=== PATIENT | female | born 1945 | race Caucasian/White ===

== ENCOUNTER 2023-10-30 18:18 | Emergency (ER) | payer MEDICARE, SELFPAY ==
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
[2023-10-30 18:18] VITALS: BP 145/77; PULSE 60; RESP 17; TEMP 36.6; O2SAT 98; BMI 29.9
--- NOTE | 2023-10-30 18:20 | CT_ITS ---
PROCEDURE INFORMATION: Exam: CT Cervical Spine Without Contrast Exam date and time: 10/30/2023 6:35 PM Age: 78 years old Clinical indication: Injury or trauma; Fall; Blunt trauma TECHNIQUE: Imaging protocol: Computed tomography of the cervical spine without contrast. Radiation optimization: All CT scans at this facility use at least one of these dose optimization techniques: automated exposure control; mA and/or kV adjustment per patient size (includes targeted exams where dose is matched to clinical indication); or iterative reconstruction. REPORTING DATA: Count of CT and Cardiac NM exams in prior 12 months: This patient has received 0 known CTs and 0 known cardiac nuclear medicine studies in the 12 months prior to the current study. COMPARISON: CT HEAD/BRAIN WO CON 10/30/2023 6:33 PM FINDINGS: Bones/joints: No acute fracture. Anterior subluxation of C3 on C4 noted, approximately 25%. Degenerative disc disease is noted at all levels. Severe disc space height loss noted at C4-C5, C5-C6 and C6-C7 with anterior and posterior osteophytes. Severe right-sided neural foraminal narrowing and moderate central canal stenosis noted at C3-C4. Bilateral icufvqyt-kw-utispl neural foraminal narrowing noted at C4-C5 through C6-C7 with wzxkfgwe-nb-tiycql central canal stenosis. Multilevel facet arthropathy. Lungs: Lung apices are normal. Thyroid: Incidentally noted is lack of visualization of the right thyroid lobe. Correlate clinically for prior resection. Soft tissues: Unremarkable. IMPRESSION: 1. No acute fracture. 2. Anterior subluxation of C3 on C4, approximately 25% 3. Multilevel degenerative disc disease with central canal stenosis or neural foraminal narrowing, noted above
--- NOTE | 2023-10-30 18:20 | CT_ITS ---
PROCEDURE INFORMATION: Exam: CT Head Without Contrast Exam date and time: 10/30/2023 6:33 PM Age: 78 years old Clinical indication: Injury or trauma; Fall; Blunt trauma (contusions or hematomas) TECHNIQUE: Imaging protocol: Computed tomography of the head without contrast. Radiation optimization: All CT scans at this facility use at least one of these dose optimization techniques: automated exposure control; mA and/or kV adjustment per patient size (includes targeted exams where dose is matched to clinical indication); or iterative reconstruction. REPORTING DATA: Count of CT and Cardiac NM exams in prior 12 months: This patient has received 0 known CTs and 0 known cardiac nuclear medicine studies in the 12 months prior to the current study. COMPARISON: No relevant prior studies available. FINDINGS: Brain: There is no acute hemorrhage or obvious acute infarct. Old lacunar infarct noted left basal. Cortical volume loss noted. Scattered hypodensities noted in the bilateral periventricular and deep white matter. Atherosclerosis noted in the bilateral cavernous carotid arteries. Cerebral ventricles: No hydrocephalus. Paranasal sinuses: Visualized sinuses are unremarkable. No fluid levels. Mastoid air cells: Visualized mastoid air cells are well aerated. Bones/joints: Unremarkable. No acute fracture. Soft tissues: Unremarkable. IMPRESSION: 1. No acute intracranial disease or hemorrhage. 2. No obvious acute infarct. Please note if the patient's symptoms do not improve, or worsen, consider MRI with diffusion imaging. 3. Chronic deep white matter ischemic and senescent changes noted. Please see above. 4. 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
--- NOTE | 2023-10-30 18:31 | PC.NURSE ---
Pt gone to RAD via stretcher
--- NOTE | 2023-10-30 18:34 | PC.NURSE ---
pt to ct scan via stretcher
--- NOTE | 2023-10-30 18:40 | PC.NURSE ---
pt back from ct scan. Dr. VIEIRA at bedside now to suture L eyebrow laceration
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
--- NOTE | 2023-10-30 18:45 | PC.NURSE ---
Dr. Pressley at BS
[2023-10-30 19:01] VITALS: BP 132/55; PULSE 57; O2SAT 93
--- NOTE | 2023-10-30 19:51 | PC.NURSE ---
applied cervical collar with assistance from Kim Hendricks and Patrice Torres.
[2023-10-30 20:36] VITALS: BP 123/66; PULSE 68; RESP 16; TEMP 36.6; O2SAT 97
--- NOTE | 2023-10-30 20:37 | PC.NURSE ---
pt alert and oriented, pupils 3mm PERRLA, moving all extremities, assisted to wheel chair per family request and assisted out of ER
== END 2023-10-30 20:38 | disposition home or self-care (01) ==
PROVIDERS: Emergency Provider Emergency Medicine; PCP Family Medicine
DX: S01.112A Laceration without foreign body of left eyelid and periocular area, initial encounter (principal); S00.12XA Contusion of left eyelid and periocular area, initial encounter; V03.10XA Pedestrian on foot injured in collision with car, pick-up truck or van in traffic accident, initial encounter
CPT/HCPCS: 70450; 72125; 99285

== ENCOUNTER 2024-03-08 09:16 | Outpatient (CLI) | payer MEDICARE, SELFPAY | END 2024-03-08 23:59 | LOC: LAB.DROPOF 03-09 09:17 | PROVIDERS: PCP Nurse Practitioner; Visit Provider Nurse Practitioner | DX: L97.519 Non-pressure chronic ulcer of other part of right foot with unspecified severity (principal) | CPT/HCPCS: 87070; 87205 ==

== ENCOUNTER 2024-03-28 16:17 | Outpatient (CLI) | payer MEDICARE, SELFPAY ==
--- NOTE | 2024-03-28 16:23 | XR_ITS ---
PROCEDURE INFORMATION: Exam: XR Left Foot Complete; Alignment Exam date and time: 03/28/2024 4:24 PM Age: 79 years old Clinical indication: Pain; Foot; Left; Additional info: Foot pain TECHNIQUE: Imaging protocol: Radiologic exam of the left foot. Views: 3 or more views. COMPARISON: No relevant prior studies available. FINDINGS: Bones/joints: There is a hallux valgus deformity. There is a plantar calcaneal enthesophyte. There is mild degenerative change of the tarsus and interphalangeal joints. There is diffuse osseous demineralization. The osseous structures are intact, with no signs of acute fracture, dislocation, or malalignment. Age-related degenerative changes are observed. There is no evidence of abnormal bone density or destructive lesions. Soft tissues: The soft tissues appear within normal limits. IMPRESSION: At the time of imaging, the study shows no acute osseous abnormalities but does reveal signs of age-related degenerative changes.
--- NOTE | 2024-03-28 16:23 | XR_ITS ---
PROCEDURE INFORMATION: Exam: XR Right Foot Complete; Alignment Exam date and time: 03/28/2024 4:24 PM Age: 79 years old Clinical indication: Other: Foot ulcer TECHNIQUE: Imaging protocol: Radiologic exam of the right foot. Views: 3 or more views. COMPARISON: No relevant prior studies available. FINDINGS: Bones/joints: There is a hallux valgus deformity. There is diffuse osseous demineralization. There is a plantar calcaneal enthesophyte. There is a dorsal calcaneal enthesophyte. There is mild degenerative change of the tarsus and interphalangeal joints. No acute osseous injury. Soft tissues: There is some soft tissue swelling. No radiopaque foreign body is seen. IMPRESSION: No radiopaque foreign body or acute osseous abnormality.
== END 2024-03-28 23:59 | disposition home or self-care (01) ==
LOC: RAD 16:19
PROVIDERS: PCP Family Medicine; Visit Provider Nurse Practitioner
DX: L97.512 Non-pressure chronic ulcer of other part of right foot with fat layer exposed (principal); M79.671 Pain in right foot; M79.672 Pain in left foot
CPT/HCPCS: 73630

== ENCOUNTER 2024-04-15 09:57 | Outpatient (CLI) | payer MEDICARE, SELFPAY ==
--- NOTE | 2024-04-15 09:59 | US_ITS ---
FINAL REPORT CLINICAL HISTORY: Decreased Pedal Pulses,WOUND RIGHT 2ND/3RD TOE, DEFORMITY OF 2ND TOE ,HTN FINDINGS: COMPLETE ANKLE/BRACHIAL INDICES BILATERAL Ankle brachial indices were obtained. The right RICK is 1.2. The left RICK is 1.1. IMPRESSION: ABIs are within normal limits bilaterally. Reviewed, Interpreted and Dictated by Amando Perez III, MD Transcribed by Judi Hooks Authenticated and [facility]
== END 2024-04-15 23:59 | disposition home or self-care (01) ==
PROVIDERS: PCP Family Medicine; Visit Provider Podiatrist
DX: R09.89 Other specified symptoms and signs involving the circulatory and respiratory systems (principal)
CPT/HCPCS: 93923

== ENCOUNTER 2024-05-04 14:57 | Outpatient (CLI) | payer MEDICARE, SELFPAY ==
--- NOTE | 2024-05-04 14:58 | MR_ITS ---
FINAL REPORT CLINICAL HISTORY: non healing wound of R 2nd toe FINDINGS: Multi planar MR imaging of the right foot was obtained without contrast. Motion artifact is identified on many of the images. Severe hallux valgus deformity is identified. There are mild degenerative changes of the 1st metatarsophalangeal joint. There is abnormal T1 and T2 signal involving the distal aspect of the 2nd proximal phalanx. The appearance is consistent with osteomyelitis. There is 2nd digit hammertoe deformity. Forefoot soft tissue edema or cellulitis is identified. IMPRESSION: Osteomyelitis involving the distal aspect of the 2nd proximal phalanx. Reviewed, Interpreted and Dictated by Amando Perez III, MD Transcribed by Judi Hooks Authenticated and [facility]
== END 2024-05-04 23:59 | disposition home or self-care (01) ==
LOC: RAD 14:58
PROVIDERS: PCP Family Medicine; Visit Provider Nurse Practitioner
DX: E11.621 Type 2 diabetes mellitus with foot ulcer (principal); L97.512 Non-pressure chronic ulcer of other part of right foot with fat layer exposed
CPT/HCPCS: 73718

== ENCOUNTER 2024-05-06 16:13 | Outpatient (CLI) | payer MEDICARE, MEDICAID, SELFPAY ==
[2024-05-06 17:07] LABS: Alanine Aminotransferase 21 U/L (12-78); Albumin Level 3.7 g/dl (3.5-5.0); Albumin/Globulin Ratio 1.3 (1.1-1.8); Alkaline Phosphatase 135 U/L (38-126); Anion Gap 15.2 mEq/L (5-15); Aspartate Amino Transferase 29 U/L (14-36); Bilirubin,Total 0.4 mg/dl (0.2-1.3); Blood Urea Nitrogen 32 mg/dl (7-17); Calcium 9.2 mg/dl (8.4-10.2); Carbon Dioxide 26 mmol/L (22.0-30.0); Chloride 108 mmol/L (98-107); Estimated Glomerular Filt Rate 29 ml/min (>60); GFR (African American) 35 ML/MIN (>60); Globulin 2.9 g/dL (1.3-3.2); Glucose 124 mg/dl (74-100); Potassium 4.2 mmoL/L (3.5-5.1); Sodium 145 mmol/L (136-145); Total Protein,Serum 6.6 g/dl (6.3-8.2)
[2024-05-06 17:10] LABS: Basophils % 0.5 % (0.1-2.0); Eosinophils # 0.3 K/mm3 (0.0-0.4); Eosinophils % 3.6 % (0.1-12.0); Hematocrit 38.2 % (37.0-47.0); Hemoglobin 12.4 g/dL (12.2-16.2); Lymphocytes # 2.3 K/mm3 (0.7-4.5); Lymphocytes % 25.7 % (10-50); Mean Corpuscular HGB Conc 32.5 g/dL (31.8-35.4); Mean Corpuscular Hemoglobin 30.3 pg (27.0-31.2); Mean Corpuscular Volume 93.2 fl (81-99); Mean Platelet Volume 8.3 fl (7.4-10.4); Monocytes # 0.4 K/mm3 (0.1-1.0); Monocytes % 4.6 % (1.7-9.3); Neutrophils # 5.8 K/mm3 (1.8-7.8); Neutrophils % 65.6 % (37.0-80.0); Platelet Count 285 K/mm3 (142-424); Red Blood Count 4.09 M/mm3 (4.20-5.40); Red Cell Distribution Width 14.3 % (11.5-17.5); White Blood Count 8.8 K/mm3 (4.8-10.8)
[2024-05-06 17:14] LABS: C-Reactive Protein 1.8 mg/L (0-4)
[2024-05-06 17:35] LABS: Hemoglobin A1C 5.5 % (4.0-6.0)
[2024-05-06 20:11] LABS: Erythrocyte Sedimentation Rate 21 mm/hr (0-30)
== END 2024-05-06 23:59 | disposition home or self-care (01) ==
LOC: LAB 16:14
PROVIDERS: PCP Nurse Practitioner; Visit Provider Nurse Practitioner
DX: E11.621 Type 2 diabetes mellitus with foot ulcer (principal); L97.512 Non-pressure chronic ulcer of other part of right foot with fat layer exposed; L97.519 Non-pressure chronic ulcer of other part of right foot with unspecified severity
CPT/HCPCS: 36415; 80053; 83036; 85025; 85651; 86140

== ENCOUNTER 2024-05-30 11:32 | Observation (INO) | payer MEDICARE, MEDICAID, SELFPAY ==
[2024-05-30] VITALS (23 sets, daily range): BP systolic 109–158; BP diastolic 49–94; PULSE 61–80; RESP 16–20; TEMP 36.5–36.9; O2SAT 93–97; BMI 23.7; BMI 29.0; BMI 38.5
--- NOTE | 2024-05-30 10:18 | XR_ITS ---
FINAL REPORT TECHNIQUE: Single view chest CLINICAL HISTORY: surgery..cough FINDINGS: A single view of the chest was obtained. The heart is enlarged. There is a large hiatal hernia. The lungs are clear. There is no pneumothorax. Osseous structures demonstrate severe degenerative changes of the bilateral shoulders. IMPRESSION: No acute cardiopulmonary process. Reviewed, Interpreted and Dictated by Amando Perez III, MD Transcribed by Antonia Kelly Authenticated and . [facility]
--- NOTE | 2024-05-30 10:29 | ECG_ITS ---
APPROVED REPORT Exam: Resting ECG HR:57 bpm ECG Measurements Heart Rate 57 AXES UT 155 P 54 QRSd 155 QRS -8 QT 462 T 34 QTc 456 Conclusion SINUS BRADYCARDIA WITH OCCASIONAL SUPRAVENTRICULAR PREMATURE COMPLEXES LEFT BUNDLE BRANCH BLOCK [120+ ms QRS DURATION, 80+ ms Q/S IN V1/V2, 85+ ms R IN I/aVL/V5/V6] ABNORMAL ECG UNCONFIRMED REPORT Electronically signed by : LETICIA VILLEGAS, 05/31/2024 02:15:34
[2024-05-30 10:50] LABS: POC Glucose,Bedside 91 (70-110)
--- NOTE | 2024-05-30 11:56 | EXP.ANES.CKL ---
[facility] Disclaimer: The information contained in this section may have been updated after the patient was seen, as this information can be updated by other users. Medical History Gastro-esophageal reflux Degenerative joint disease involving multiple joints Chronic kidney disease, stage 3 Mixed anxiety depressive disorder Mild memory disturbance Idiopathic peripheral neuropathy Gout Hyperlipidemia Vitamin D deficiency Renal disorder Type 2 diabetes mellitus Surgical History H/O: hysterectomy History of thyroid surgery Hx of cholecystectomy Hx of cataract surgery Family History Sister Cancer Heart attack Hypertension Father Heart attack Mother Seizure disorder Social History (Updated 05/30/24 @ 10:10 by Yesy Guardado RN) Smoking Status: Former smoker years smoked: 15 smoking status stop date: 2000 alcohol intake: never substance use type: denies use current occupational status: retired Travel in the last 8 weeks: None household members: none marital status: number of children: 3 education level: high school pets and animals: Yes diet: diabetic caffeine: No [facility] Anesthesia Checklist Patient Identification Patient Identification: Arm Band Structural Data Admitted From: Home Planned Operative Procedure/s: Right 2nd Toe Amputation Consent for Planned Operative Procedure(s) Verified: Yes Verified Documents: Surgical Consent and History and Physical NPO Status Verified Time NPO: 00:00 Additional verifications Anesthesia Reactions: No Hx Blood Transfusions: No Blood Transfusion Reaction: No Airway Assessment Mallampati Score:: Class II C-Spine Mobility Assessed: Yes TMJ Mobility Assessed: Yes Dentition: Edentulous Neurological Assessment Level of Consciousness: Awake, Alert and Appropriate Anesthesia Plan Anesthesia Risk discussed: Yes Anesthesia Plan: Verified ASA Class: III Anesthesia Type: MAC
--- NOTE | 2024-05-30 11:57 | P.CONS_ITS ---
History of Present Illness *Admission Date: 05/30/24 *Reason for visit:: S/p R 2nd toe amp *History of present illness: Patient is a 79-year-old diabetic female who presents for postop admission for 23-hour observation after right second toe amputation. Patient was recently seen at [facility] for A-fib. 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 Medical and cardiac clearance has been granted prior to surgery today. Patient has known second toe osteomyelitis second to rigid hammertoe contracture and open wound, confirmed with x-rays, MRI and wound culture. Due to her chronic kidney disease, recommendation is no PICC line. Her previous wound cultures were susceptible to linezolid. We will plan for IV antibiotic while admitted then discharged with oral linezolid. [facility] Disclaimer: The information contained in this section may have been updated after the patient was seen, as this information can be updated by other users. Medical History Gastro-esophageal reflux Degenerative joint disease involving multiple joints Chronic kidney disease, stage 3 Mixed anxiety depressive disorder Mild memory disturbance Idiopathic peripheral neuropathy Gout Hyperlipidemia Vitamin D deficiency Renal disorder Type 2 diabetes mellitus Surgical History H/O: hysterectomy History of thyroid surgery Hx of cholecystectomy Hx of cataract surgery Family History Heart attack Sister Father Seizure disorder Mother Cancer Sister Hypertension Sister Social History Smoking Status: Former smoker years smoked: 15 smoking status stop date: 2000 alcohol intake: never substance use type: denies use current occupational status: retired Travel in the last 8 weeks: None household members: none marital status: number of children: 3 education level: high school pets and animals: Yes diet: diabetic caffeine: No Review of Systems Review of Systems Review of systems:: pertinent systems reviewed and negative unless documented below Constitutional Constitutional: Reports system reviewed and no additional complaints, except as documented and Reports weakness Eyes Eyes: Reports system reviewed and no additional complaints, except as documented ENT Ears, Nose, Mouth, and Throat: Reports system reviewed and no additional complaints, except as documented *Cardiovascular Cardiovascular: Reports system reviewed and no additional complaints, except as documented, Reports as per HPI and Reports pedal edema *Respiratory Respiratory: Reports system reviewed and no additional complaints, except as documented *Gastrointestinal Gastrointestinal: Reports system reviewed and no additional complaints, except as documented *Genitourinary Genitourinary: Reports system reviewed and no additional complaints, except as documented *Musculoskeletal Musculoskeletal: Reports system reviewed and no additional complaints, except as documented, Reports arthralgias, Reports muscle weakness and Reports numbness Integumentary/Breasts Skin/Breast: Reports system reviewed and no additional complaints, except as documented and Reports skin ulcer *Neurologic Neurologic: Reports system reviewed and no additional complaints, except as documented, Reports numbness and Reports weakness Psychiatric Psychiatric: Reports system reviewed and no additional complaints, except as documented Endocrine Endocrine: Reports system reviewed and no additional complaints, except as documented Hematologic/Lymphatic Hematologic/Lymphatic: Reports system reviewed and no additional complaints, except as documented Allergic/Immunologic Allergic/Immunologic: Reports system reviewed and no additional complaints, except as documented Meds Home Medications and Allergies Home Medications Medication Instructions Recorded Confirmed Type allopurinol 100 mg tablet 100 mg PO DAILY 03/08/24 05/30/24 History amlodipine 5 mg tablet (Norvasc) 5 mg PO DAILY 03/08/24 05/30/24 History aripiprazole 10 mg tablet (Abilify) 10 mg PO HS 03/08/24 05/30/24 History buspirone 15 mg tablet 15 mg PO BID 03/08/24 05/30/24 History ergocalciferol (vitamin D2) 1,250 1,250 mcg PO MONTHLY 03/08/24 05/30/24 History mcg (50,000 unit) capsule (Vitamin D2) famotidine 20 mg tablet (Pepcid) 20 mg PO BID 03/08/24 05/30/24 History folic acid 1 mg tablet 1 mg PO DAILY 03/08/24 05/30/24 History furosemide 40 mg tablet (Lasix) 40 mg PO DAILYP PRN Edema 03/08/24 05/30/24 His tory levothyroxine 50 mcg tablet 50 mcg PO DAILY 03/08/24 05/30/24 History lisinopril 10 1 tab PO DAILY 03/08/24 05/30/24 History mg-hydrochlorothiazide 12.5 mg tablet (Zestoretic) loratadine 10 mg tablet 10 mg PO DAILY 03/08/24 05/30/24 History memantine 10 mg tablet 10 mg PO BID 03/08/24 05/30/24 History metoprolol succinate 100 mg 100 mg PO DAILY 03/08/24 05/30/24 History tablet,extended release 24 hr (Toprol XL) pantoprazole 40 mg tablet,delayed 40 mg PO BID 03/08/24 05/30/24 History release potassium chloride 20 mEq 10 meq PO BID 03/08/24 05/30/24 History tablet,extended release(part/cryst) tramadol 50 mg tablet 25 mg PO BIDP PRN Mild Pain (Scale 03/08/24 05/30/24 History Score 1-4) venlafaxine 75 mg capsule,extended 75 mg PO DAILY 03/08/24 05/30/24 History release 24 hr (Effexor XR) aspirin 81 mg tablet,delayed 81 mg PO DAILY 05/30/24 05/30/24 History release atorvastatin 40 mg tablet 40 mg PO DAILY 05/30/24 05/30/24 History New Prescriptions to Start Prescriptions: Allergies Allergy/AdvReac Type Severity Reaction Status Date / Time No Known Allergies Allergy Verified 05/30/24 10:39 Exam (Inpt) Vital signs and Labs for Last 24 Hours: Temp Pulse Resp BP Pulse Ox O2 Del Method 97.7 F 61 16 158/71 H 96 Room Air 05/30/24 10:27 05/30/24 10:27 05/30/24 10:27 05/30/24 10:27 05/30/24 10:27 05/30/24 10:27 Laboratory Results - last 24 hr 05/30/24 10:43: POC Glucose 91 I & O for Labs for Last 24 Hours: Intake & Output 05/27/24 05/28/24 05/29/24 05/30/24 11:59 11:59 11:59 11:59 Weight 134 lb Constitutional: Present no acute distress Head: Present normocephalic Eye: Present as per HPI Neck: Present normal inspection Respiratory: Present able to speak in complete sentences Cardiac: Present pedal pulses present (weakly palpable) GI: Present soft Rectal (female): Present deferred (female): Present deferred Extremities: Present tenderness (R 2nd toe) Skin: Present wounds Comment:: S/p right 2nd toe amp with sutures clean dry and intact. Neuro: Present Weakness and moves all extremities Ankle: bilateral: swelling Feet/Toes: right: amputation (s/p R 2nd toe amp) and right: wound (hx R 2nd toe DFU) and bilateral: bunion, bilateral: deformity, bilateral: hammer toe, bilateral: nail abnormalities and bilateral: onychomycosis Inspection: Present foot deformity deformity: Present bunion, hallux valgus, hammer toes and deformed toes and calluses/corns (R sub 1st met) Pulses: L dorsalis pedis pulse: diminished, R dorsalis pedis pulse: diminished, L posterior tibial pulse: diminished and R posterior tibial pulse: diminished CFT: dim: CFT Results Labs Labs: All other labs normal. Diagnostic results Ankle/Foot x-ray: pending Assessment and Plan *Assessment and plan (1) Osteomyelitis of second toe of right foot: Status: Acute Category: Medical Code(s): M86.9 - Osteomyelitis, unspecified (2) MRSA (methicillin resistant staph aureus) culture positive: Status: Acute Category: Medical Code(s): Z22.322 - Carrier or suspected carrier of Methicillin resistant Staphylococcus aureus (3) Crossover toe deformity of right foot: Status: Acute Category: Medical Code(s): M20.5X1 - Other deformities of toe(s) (acquired), right foot (4) Status post amputation of toe of right foot: Status: Acute Category: Surgical Code(s): Z89.421 - Acquired absence of other right toe(s) (5) Chronic kidney disease, stage 3: Status: Acute Qualifiers: Chronic kidney disease stage 3 subtype: unspecified whether 3a or 3b Qualified Code(s): N18.30 - Chronic kidney disease, stage 3 unspecified Category: Medical Code(s): N18.30 - Chronic kidney disease, stage 3 unspecified (6) Type 2 diabetes mellitus: Status: Acute Qualifiers: Chronic kidney disease stage: stage 3 (moderate) Chronic kidney disease stage 3 subtype: unspecified whether 3a or 3b Diabetes mellitus complication detail: with chronic kidney disease Diabetes mellitus complication status: with kidney complications Diabetes mellitus bed bug exterminator insulin use: without bed bug exterminator use Qualified Code(s): E11.22 - Type 2 diabetes mellitus with diabetic chronic kidney disease; N18.30 - Chronic kidney disease, stage 3 unspecified Category: Medical Code(s): E11.9 - Type 2 diabetes mellitus without complications Plan 03/08/24, R 2nd toe WCx: MRSA 05/06/24, 8.8, esr 21, crp 1.8, cr 1.7, gfr 29, glucose 124, Ha1c 5.5%, albumin 3.7 Surgery, 05/30/24: S/p right 2nd toe amp, sub 1st met callus debridement DOS: IV Vanco 1g then plan for Linezolid 600mg q12h x 3 doses Admit per [facility] hospitalist team: cardiac monitoring, meds mgmt. Podiatry to consult. Patient is to maintain dressing clean dry and intact. Needs Clinic Pharmacy: meds to bed No PICC. Continue antibiotics: IV Linzeolid while admitted. Plan for d/c with oral Linzeolid 600mg po x10d. Weight bearing to the right heel in short fracture boot with DME assistance (walker, wheelchair). Obtain post op films, right foot, 3 views. Plan for dressing change tomorrow by Podiatry. F/u with Podiatry in one week.
[2024-05-30] MEDS: GENTAMICIN 80 MG/2 ML VIAL (12:22)
[2024-05-30] MEDS: BUPIVACAINE 0.5% 30ML VIAL 150 MG (12:23)
[2024-05-30] MEDS: VANCOMYCIN 1000MG VIAL 1000 MG (12:23)
[2024-05-30] MEDS: VANCOMYCIN HCL 1,000 MG in 0.9 % SODIUM CHLORIDE 250 ML 125 MG IV (12:24)
--- NOTE | 2024-05-30 12:31 | HMH.PHAINT1 ---
Pharmacy Intervention Comments: MEDICATION RECONCILIATION COMPLETED ON PATIENT USING EXTERNAL FILL HISTORY FROM PHARMACY. -COLIN VELAZQUEZ, KATHERINED
--- NOTE | 2024-05-30 12:32 | XR_ITS ---
FINAL REPORT CLINICAL HISTORY: Post op 2nd toe amp FINDINGS: RIGHT FOOT 3 views of the right foot were obtained. There are postoperative changes of the second toe with amputation of the digit at the MTP joint. There is hallux valgus deformity. There is no acute fracture or dislocation. There are moderate degenerative changes with calcaneal spurring. Calcification is noted in the posterior plantar aponeurosis. Visualized joint spaces are normally aligned. Soft tissues are unremarkable. IMPRESSION: Postoperative and degenerative changes without acute bony abnormality. Reviewed, Interpreted and Dictated by Amando Perez III, MD Transcribed by Antonia Kelly Authenticated and [facility]
--- NOTE | 2024-05-30 12:32 | EXP.OP.NOTE ---
Date of procedure: 05/30/24 Pre-op Diagnosis:: Right 2nd toe osteomyelitis Right 2nd toe open wound/DFU Right sub 1st met callus Post-op Diagnosis:: Same Procedure performed:: Right 2nd toe amputation Right sub 1st met callus debridement Surgeon:: Liv Monroe DPM AEROSPACE ENGINEER:: Dano Goldsmith Anesthesia: MAC and local (20cc 0.5% marcaine plain) Estimated blood loss (mL): 5 Clinical Note:: Patient is a 79 DM female who presents with painful right 2nd hammertoe cross over deformity with a dorsal PIPJ DFU. We discussed conservative versus surgical treatment options. Conservative treatment options include local wound care, oral and IV antibiotics, change in shoe wear, taping/padding, and off-loading. Discussed that patient would benefit from a wider and deeper shoe wear to accommodate the deformity. We discussed surgical intervention for amputation of the right 2nd toe. Patient understands that there is a chance that the toes can migrate to fill the gap or the foot may change shape after surgery. Patient also understands that they could have wound healing complications including delayed healing and infection. We discussed that if the wound does not heal, it is possible that they may need a more proximal amputation and could result in further loss of digits, loss of partial foot or loss of leg. We discussed the risks and benefits in great detail. Other surgical risks include: prolonged pain and swelling, further infection requiring oral or IV antibiotics, delay in healing of soft tissue or bone, nerve or blood vessel damage, CRPS/RSD, DVT/PE, anesthesia complications, and even . All questions answered. Patient verbalized understanding. Consent obtained. Operative findings:: Significant hallux valgus bunion deformity with crossover right second toe. Toes 3?5 semirigid hammertoes. Right second toe open wound over the dorsal PIPJ. Wound full-thickness down to the level of bone with exposed proximal phalanx head. Wound and toe amputated together full-thickness. Proximal phalanx was soft and crumbly. No sinus tracking or deep purulence noted. Early cortical erosions noted to the metatarsal head, likely secondary to osteoarthritis. Infection appears localized to right 2nd toe. Right sub first metatarsal callus with no underlying ulceration noted. Operative note:: On this date and time patient was deemed an appropriate surgical candidate. With informed consent signed, the patient was taken to the operating theater. The patient was positioned supine. MAC anesthesia was induced. No tourniquet used. Pre-op right second toe and ankle block given with 20 cc 0.5% marcaine plain. The right lower extremity was prepped and drapped in normal sterile fashion. 1g IV vancomycin infused. Right sub 1st metatarsal callus debridement: 15 blade was utilized to debride callus/thick skin under the first metatarsal through skin only. No underlying ulceration noted. Right foot irrigation and debridement, 2nd digit amputation: Open wound/diabetic foot ulcer over the PIPJ. A fish mouth incision was mapped out. Utilizing a 15 blade dissection was carried down sharply to the level of the bone around the base of middle phalanx, which was disarticulated from the proximal phalanx. The distal toe and ulcer were sent to pathology as a specimen. The proximal phalanx head was crumbly with known osteomyelitis with cortical erosion and discoloration, so decision was made to remove the entire toe. The proximal phalanx was disarticulated from the metatarsal head. The head was soft and easily broken, discolored with cortical erosions noted. A piece of the proximal phalanx was transected and sent for bone culture and the other part was sent for bone biopsy for pathology. The 2nd met head was intact with early cortical erosions, however no discoloration or obvious signs of osteomyelitis. Next 1L of gentamicin irrigation was used to flush the wound. The wound was reexplored and no further signs of infection noted. No sinus tracking. Bleeding controlled. No vessels ligated with electrocautery or tied as there was minimal to no blood loss. 3-0 Vicryl used to close deep over the metatarsal head. Vancomycin powder was inserted. 4-0 Prolene was used to close skin in an interrupted simple suture fashion. The wounds were cleansed. Vancomycin powder applied to the incision. Xeroform, betadine soaked gauze, dry sterile dressing was then applied to the right foot. The patient was awoken from anesthesia and transferred to recovery with vital signs stable and neurovascular status intact. She appeared to tolerate procedure and anesthesia well without complication. Materials: 1g vancomycin powder, 4-0 Prolene Discharge/Plan: Admit per [facility] hospitalist team: cardiac monitoring, meds mgmt. Podiatry to consult. Patient is to maintain dressing clean dry and intact. Continue antibiotics: IV Linzeolid while admitted. Plan for d/c with oral Linzeolid 600mg po x10d ([facility] Pharm[facility] meds to bed: abx, Theresa x10 pills). Weight bearing to the right heel in short fracture boot with DME assistance (walker, wheelchair). Obtain post op films, right foot, 3 views. Plan for dressing change tomorrow by Podiatry. Condition: stable Disposition: floor Specimens:: Right 2nd toe bone culture Path: right 2nd toe, right 2nd toe bone Complications:: None
--- NOTE | 2024-05-30 12:39 | P.PNANES_ITS ---
[facility] Anesthesia Record Part I Anesthesia Record I Intake, IV Amount: 300 Hydration: Adequate Estimated blood loss (mL): 5 Urine output (mL): 0 Blood Products used (#): none Blood Pressure: 115/56 SaO2: 96 Pulse Rate: 75 Airway Patency: Patent Respiratory Rate: 16 Temperature: 98.2 F Patient is:: Drowsy and Stable Stable to PACU at:: 12:35
[2024-05-30] MEDS: MORPHINE 2MG/ML SYRINGE 2 MG IV (13:28)
--- NOTE | 2024-05-30 13:30 | P.PNANES_ITS ---
[facility] Anesthesia Record Part II Anesthesia Record Part II Discharge Time: 13:25 Destination: Medical Surgical Department PACU nurse assessment reviewed?: Yes Patient Condition:: Good Anesthesia Complications:: None Swallowing reflex intact?: Yes Airway Patency: Patent Cyanosis?: No Blood Pressure: 137/80 SaO2: 95 Respiratory Rate: 16 Pulse Rate: 70 Temperature: 98.2 F Mental Status: Alert & Oriented Pain level:: 4 Nausea and/or vomitting:: None Intake, IV Amount: 0 Hydration: Adequate
--- NOTE | 2024-05-30 13:42 | PC.NURSE ---
arrived by bed from surgery
--- NOTE | 2024-05-30 15:44 | EXP.HP ---
History of Present Illness *Admission Date: 05/30/24 *Reason for visit:: Infected toe *History of present illness: Ms. Marrufo is a 79-year-old female with a history of diabetes with multiple fractures in her right middle toe per family's report. She presented because of recurring infections after the toes curled over each other and she has had persistent problems. Right second toe was removed electively today by podiatry. Of note, she recently had an admission at [facility] in [place] for A-fib. 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 Previous history of osteomyelitis in the second hammertoe contracture with open wound. Osteomyelitis confirmed with x-rays and MRI. Procedure performed today, successful well-tolerated amputation of toe. Patient seen after arriving to the floor. She is alert at baseline to self. Does not know where she is or why. Has baseline dementia per family. Is pleasant on exam with no complaints of pain. Stable on room air and afebrile. Medicine consulted to assist with comanagement of patient. [facility] Disclaimer: The information contained in this section may have been updated after the patient was seen, as this information can be updated by other users. Medical History Gastro-esophageal reflux Degenerative joint disease involving multiple joints Chronic kidney disease, stage 3 Mixed anxiety depressive disorder Mild memory disturbance Idiopathic peripheral neuropathy Gout Hyperlipidemia Vitamin D deficiency Renal disorder Type 2 diabetes mellitus Surgical History H/O: hysterectomy History of thyroid surgery Hx of cholecystectomy Hx of cataract surgery Family History Sister Cancer Heart attack Hypertension Father Heart attack Mother Seizure disorder Social History Smoking Status: Former smoker years smoked: 15 smoking status stop date: 2000 alcohol intake: never substance use type: denies use current occupational status: retired Travel in the last 8 weeks: None household members: none marital status: number of children: 3 education level: high school pets and animals: Yes diet: diabetic caffeine: No Review of Systems Review of Systems Review of systems (narrative): 14 point review of systems performed, pertinent positives and negatives as per HPI Constitutional Constitutional: Reports weakness *Musculoskeletal Musculoskeletal: Reports numbness *Neurologic Neurologic: Reports system reviewed and no additional complaints, except as documented, Reports numbness and Reports weakness Meds Home Medications and Allergies Home Medications Medication Instructions Recorded Confirmed Type allopurinol 100 mg tablet 100 mg PO DAILY 03/08/24 05/30/24 History amlodipine 5 mg tablet (Norvasc) 5 mg PO DAILY 03/08/24 05/30/24 History aripiprazole 10 mg tablet (Abilify) 10 mg PO HS 03/08/24 05/30/24 History buspirone 15 mg tablet 15 mg PO BID 03/08/24 05/30/24 History ergocalciferol (vitamin D2) 1,250 1,250 mcg PO MONTHLY 03/08/24 05/30/24 History mcg (50,000 unit) capsule (Vitamin D2) famotidine 20 mg tablet (Pepcid) 20 mg PO BID 03/08/24 05/30/24 History folic acid 1 mg tablet 1 mg PO DAILY 03/08/24 05/30/24 History furosemide 40 mg tablet (Lasix) 40 mg PO DAILYP PRN Edema 03/08/24 05/30/24 History levothyroxine 50 mcg tablet 50 mcg PO DAILY 03/08/24 05/30/24 History lisinopril 10 1 tab PO DAILY 03/08/24 05/30/24 History mg-hydrochlorothiazide 12.5 mg tablet (Zestoretic) loratadine 10 mg tablet 10 mg PO DAILY 03/08/24 05/30/24 History memantine 10 mg tablet 10 mg PO BID 03/08/24 05/30/24 History metoprolol succinate 100 mg 100 mg PO DAILY 03/08/24 05/30/24 History tablet,extended release 24 hr (Toprol XL) pantoprazole 40 mg tablet,delayed 40 mg PO BID 03/08/24 05/30/24 History release potassium chloride 20 mEq 10 meq PO BID 03/08/24 05/30/24 History tablet,extended release(part/cryst) tramadol 50 mg tablet 25 mg PO BIDP PRN Mild Pain (Scale 03/08/24 05/30/24 History Score 1-4) venlafaxine 75 mg capsule,extended 75 mg PO DAILY 03/08/24 05/30/24 History release 24 hr (Effexor XR) aspirin 81 mg tablet,delayed 81 mg PO DAILY 05/30/24 05/30/24 History release atorvastatin 40 mg tablet 40 mg PO DAILY 05/30/24 05/30/24 History hydrocodone 5 mg-acetaminophen 325 1 tab PO Q8H PRN pain 4 days #10 05/30/24 Rx mg tablet tabs linezolid 600 mg tablet (Zyvox) 600 mg PO BID infection 10 days 05/30/24 Rx #20 tabs New Prescriptions to Start Prescriptions: Allergies Allergy/AdvReac Type Severity Reaction Status Date / Time No Known Allergies Allergy Verified 05/30/24 10:39 Exam Data for Last 24 hours Vital signs and Labs for Last 24 Hours: Temp Pulse Resp BP Pulse Ox O2 Del Method 97.9 F 70 16 115/71 94 L Room Air 05/30/24 13:45 05/30/24 15:15 05/30/24 15:15 05/30/24 15:15 05/30/24 15:15 05/30/24 15:15 Laboratory Results - last 24 hr 05/30/24 10:43: POC Glucose 91 I & O for Last 24 hours: Intake & Output 05/27/24 05/28/24 05/29/24 05/30/24 23:59 23:59 23:59 23:59 Intake Total 540 / 540 Balance 540 / 540 Weight 78.075 kg Constitutional Constitutional: no acute distress, obese and chronically ill appearing *Routine HEENT Exam Head: Present normocephalic Eye: Present EOMI and PERRL ENT: Present mucous membranes moist *Routine Neck Exam Neck: Present supple; Absent lymphadenopathy *Routine Respiratory Exam Respiratory: Present CTA bilaterally; Absent rhonchi, wheezes or crackles *Routine Cardiovascular Exam Cardiovascular: Present RRR *Routine Abdominal Exam Abdominal: Present soft and normoactive bowel sounds; Absent tenderness *Routine Rectal Exam Rectal:: deferred *Routine Genitalia Exam Genitalia:: deferred *Routine Extremities Exam Extremities: Absent cyanosis, clubbing or edema Comments: Right foot and postoperative bandage/wrap *Routine Skin Exam Skin: Present warm; Absent rash *Routine Neurological Exam Neurological: Present alert and moving all extremities Comments: Oriented to self only. Pleasantly demented. Assessment and Plan *Assessment and plan (1) Osteomyelitis of second toe of right foot: Status: Acute Category: Medical Code(s): M86.9 - Osteomyelitis, unspecified (2) Status post amputation of toe of right foot: Status: Acute Category: Surgical Code(s): Z89.421 - Acquired absence of other right toe(s) (3) Chronic kidney disease, stage 3: Status: Acute Qualifiers: Chronic kidney disease stage 3 subtype: unspecified whether 3a or 3b Qualified Code(s): N18.30 - Chronic kidney disease, stage 3 unspecified Category: Medical Code(s): N18.30 - Chronic kidney disease, stage 3 unspecified (4) Degenerative joint disease involving multiple joints: Status: Acute Category: Medical Code(s): M15.9 - Polyosteoarthritis, unspecified (5) Mild memory disturbance: Status: Acute Category: Medical Code(s): R41.3 - Other amnesia (6) Mixed anxiety depressive disorder: Status: Acute Category: Medical Code(s): F41.8 - Other specified anxiety disorders (7) Idiopathic peripheral neuropathy: Status: Acute Category: Medical Code(s): G60.9 - Hereditary and idiopathic neuropathy, unspecified (8) Type 2 diabetes mellitus: Status: Acute Qualifiers: Diabetes 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 termite control representative insulin use: without skilled nursing use Diabetes mellitus complication status: with kidney complications Diabetes mellitus complication detail: with chronic kidney disease Chronic kidney disease stage: stage 3 (moderate) Chronic kidney disease stage 3 subtype: unspecified whether 3a or 3b Qualified Code(s): E11.22 - Type 2 diabetes mellitus with diabetic chronic kidney disease; N18.30 - Chronic kidney disease, stage 3 unspecified Category: Medical Code(s): E11.9 - Type 2 diabetes mellitus without complications (9) Afib: Status: Acute Category: Medical Code(s): I48.91 - Unspecified atrial fibrillation Plan 79-year-old female with hammertoe and osteomyelitis of the second toe on right foot. Status post amputation by podiatry today. Tolerated procedure well. Admitted for observation overnight. Discussed case with podiatry, request admission for monitoring due to risk of A-fib and recent hospitalization for A-fib. I agreed to admit for further management and observation. Monitoring on telemetry overnight. Problems addressed as follows: Osteomyelitis -Previous culture sensitive to linezolid, continue 600 mg IV twice daily; source control achieved with amputation. - White cell count normal at 8.8 earlier this month. Repeat labs ordered for the morning - Continue hydrocodone 5 mg 1 tablet every 4 hours as needed for breakthrough pain. A-fib: Continue metoprolol succinate 100 mg daily, currently in sinus rhythm. Not on any anticoagulation at home. CKD 3: creatinine 1.7, BUN 32 1 month ago. Repeat CMP ordered for the morning, caution with nephrotoxins. Diabetes: A1c 5.5 1 month ago Does not appear to be on any home medications. Fingerstick glucose and insulin sliding scale low intensity while admitted. Hypothyroid: Continue levothyroxine 50 mcg daily, TSH pending for the morning Hypertension: Continue home amlodipine 5 mg daily, lisinopril 10/HCTZ 12.5 daily Hyperlipidemia: Continue home Lipitor 40 mg daily; Continue home aspirin 81mg daily Gout: Continue allopurinol 100 mg daily Mood disorder: Continue Abilify 10 mg daily; will hold venlafaxine and BuSpar due to risk serotonin syndrome home in the setting of linezolid use Memory impairment: Continue memantine 10 mg twice daily Full code Diabetic diet
[2024-05-30 16:36] LABS: POC Glucose,Bedside 126 (70-110)
[2024-05-30 20:18] LABS: POC Glucose,Bedside 174 (70-110)
[2024-05-30] MEDS: FAMOTIDINE 20MG TABLET 20 MG PO (20:53)
[2024-05-30] MEDS: ARIPiprazole 10MG TABLET 10 MG PO (20:53)
[2024-05-30] MEDS: MEMANTINE 10MG TABLET 10 MG PO (20:54)
[2024-05-30] MEDS: PANTOPRAZOLE 40MG TABLET 40 MG PO (20:54)
[2024-05-30] MEDS: humaLOG 100 UNITS/ML 10ML VIAL (SSI) SQ (20:54)
[2024-05-30] MEDS: POTASSIUM CHLORIDE 10MEQ TABLET.ER 10 MEQ PO (20:54)
[2024-05-30] MEDS: APAP/HYDROCODONE 325MG/7.5MG TAB 1 TAB PO (22:14)
[2024-05-31] VITALS: BP 122/56; PULSE 68; PULSE 76; RESP 16; TEMP 36.7; O2SAT 96
[2024-05-31] MEDS: LINEZOLID 600 MG/300 ML IV.SOLN 300 MG IV ×2 (00:39→11:35)
[2024-05-31 04:00] VITALS: BP 115/49; PULSE 67; RESP 17; TEMP 36.7; O2SAT 95; BMI 35.6
--- NOTE | 2024-05-31 04:59 | PC.NURSE ---
pt s/p amputation of right 2nd toe. drsg c/d/i. minimal pain reported. treated per jan. pt confused to time and situation, calm, daughter at bedside
[2024-05-31 06:16] LABS: POC Glucose,Bedside 131 (70-110)
[2024-05-31] MEDS: LEVOTHYROXINE 50MCG (0.05MG) TAB 50 MCG PO (06:24)
[2024-05-31] MEDS: APAP/HYDROCODONE 325MG/7.5MG TAB 1 TAB PO (06:30)
[2024-05-31 06:42] LABS: Basophils % 0.3 % (0.1-2.0); Eosinophils # 0.4 K/mm3 (0.0-0.4); Eosinophils % 3.8 % (0.1-12.0); Hematocrit 34.4 % (37.0-47.0); Hemoglobin 11.1 g/dL (12.2-16.2); Lymphocytes # 1.7 K/mm3 (0.7-4.5); Lymphocytes % 18.3 % (10-50); Mean Corpuscular HGB Conc 32.3 g/dL (31.8-35.4); Mean Corpuscular Hemoglobin 30.3 pg (27.0-31.2); Mean Corpuscular Volume 93.8 fl (81-99); Mean Platelet Volume 8.3 fl (7.4-10.4); Monocytes # 0.4 K/mm3 (0.1-1.0); Monocytes % 4.8 % (1.7-9.3); Neutrophils # 6.7 K/mm3 (1.8-7.8); Neutrophils % 72.8 % (37.0-80.0); Platelet Count 226 K/mm3 (142-424); Red Blood Count 3.67 M/mm3 (4.20-5.40); Red Cell Distribution Width 14.2 % (11.5-17.5); White Blood Count 9.2 K/mm3 (4.8-10.8)
--- NOTE | 2024-05-31 06:43 | EXP.POD.CONS ---
History of Present Illness *Admission Date: 05/30/24 *History of present illness: Ms. Marrufo is a 79-year-old female with a history of diabetes with multiple fractures in her right middle toe per family's report. She presented because of recurring infections after the toes curled over each other and she has had persistent problems. Right second toe was removed electively today by podiatry. Of note, she recently had an admission at [facility] in [place] for A-fib. Due to this, her geodetic surveyor technologist recommended to podiatry the patient be admitted and monitored overnight in the postop setting for any tachyarrhythmias. Previous history of osteomyelitis in the second hammertoe contracture with open wound. Osteomyelitis confirmed with x-rays and MRI. Procedure performed today, successful well-tolerated amputation of toe. Patient seen after arriving to the floor. She is alert at baseline to self. Does not know where she is or why. Has baseline dementia per family. Is pleasant on exam with no complaints of pain. Stable on room air and afebrile. Medicine consulted to assist with comanagement of patient. 05/31/24: Patient was resting in bed, awake and oriented this morning. She slept well with little to no pain in her Right 2nd toe amputation site. [facility] Disclaimer: The information contained in this section may have been updated after the patient was seen, as this information can be updated by other users. Medical History Gastro-esophageal reflux Degenerative joint disease involving multiple joints Chronic kidney disease, stage 3 Mixed anxiety depressive disorder Mild memory disturbance Idiopathic peripheral neuropathy Gout Hyperlipidemia Vitamin D deficiency Renal disorder Type 2 diabetes mellitus Surgical History H/O: hysterectomy History of thyroid surgery Hx of cholecystectomy Hx of cataract surgery Family History Sister Cancer Heart attack Hypertension Father Heart attack Mother Seizure disorder Social History Smoking Status: Former smoker years smoked: 15 smoking status stop date: 2000 alcohol intake: never substance use type: denies use current occupational status: retired Travel in the last 8 weeks: None household members: none marital status: number of children: 3 education level: high school pets and animals: Yes diet: diabetic caffeine: No Review of Systems Review of Systems Review of systems:: pertinent systems reviewed and negative unless documented below Constitutional Constitutional: Reports weakness Eyes Eyes: Reports system reviewed and no additional complaints, except as documented ENT Ears, Nose, Mouth, and Throat: Reports system reviewed and no additional complaints, except as documented *Cardiovascular Cardiovascular: Reports system reviewed and no additional complaints, except as documented, Reports as per HPI and Reports pedal edema *Respiratory Respiratory: Reports system reviewed and no additional complaints, except as documented *Gastrointestinal Gastrointestinal: Reports system reviewed and no additional complaints, except as documented *Genitourinary Genitourinary: Reports system reviewed and no additional complaints, except as documented *Musculoskeletal Musculoskeletal: Reports numbness Integumentary/Breasts Skin/Breast: Reports system reviewed and no additional complaints, except as documented and Reports skin ulcer *Neurologic Neurologic: Reports system reviewed and no additional complaints, except as documented, Reports numbness and Reports weakness Psychiatric Psychiatric: Reports system reviewed and no additional complaints, except as documented Endocrine Endocrine: Reports system reviewed and no additional complaints, except as documented Hematologic/Lymphatic Hematologic/Lymphatic: Reports system reviewed and no additional complaints, except as documented Allergic/Immunologic Allergic/Immunologic: Reports system reviewed and no additional complaints, except as documented Meds Home Medications and Allergies Home Medications Medication Instructions Recorded Confirmed Type allopurinol 100 mg tablet 100 mg PO DAILY 03/08/24 05/30/24 History amlodipine 5 mg tablet (Norvasc) 5 mg PO DAILY 03/08/24 05/30/24 History aripiprazole 10 mg tablet (Abilify) 10 mg PO HS 03/08/24 05/30/24 History buspirone 15 mg tablet 15 mg PO BID 03/08/24 05/30/24 History ergocalciferol (vitamin D2) 1,250 1,250 mcg PO MONTHLY 03/08/24 05/30/24 History mcg (50,000 unit) capsule (Vitamin D2) famotidine 20 mg tablet (Pepcid) 20 mg PO BID 03/08/24 05/30/24 History folic acid 1 mg tablet 1 mg PO DAILY 03/08/24 05/30/24 History furosemide 40 mg tablet (Lasix) 40 mg PO DAILYP PRN Edema 03/08/24 05/30/24 History levothyroxine 50 mcg tablet 50 mcg PO DAILY 03/08/24 05/30/24 History lisinopril 10 1 tab PO DAILY 03/08/24 05/30/24 History mg-hydrochlorothiazide 12.5 mg tablet (Zestoretic) loratadine 10 mg tablet 10 mg PO DAILY 03/08/24 05/30/24 History memantine 10 mg tablet 10 mg PO BID 03/08/24 05/30/24 History metoprolol succinate 100 mg 100 mg PO DAILY 03/08/24 05/30/24 History tablet,extended release 24 hr (Toprol XL) pantoprazole 40 mg tablet,delayed 40 mg PO BID 03/08/24 05/30/24 History release potassium chloride 20 mEq 10 meq PO BID 03/08/24 05/30/24 History tablet,extended release(part/cryst) tramadol 50 mg tablet 25 mg PO BIDP PRN Mild Pain (Scale 03/08/24 05/30/24 History Score 1-4) venlafaxine 75 mg capsule,extended 75 mg PO DAILY 03/08/24 05/30/24 History release 24 hr (Effexor XR) aspirin 81 mg tablet,delayed 81 mg PO DAILY 05/30/24 05/30/24 History release atorvastatin 40 mg tablet 40 mg PO DAILY 05/30/24 05/30/24 History hydrocodone 5 mg-acetaminophen 325 1 tab PO Q8H PRN pain 4 days #10 05/30/24 Rx mg tablet tabs linezolid 600 mg tablet (Zyvox) 600 mg PO BID infection 10 days 05/30/24 Rx #20 tabs New Prescriptions to Start Prescriptions: Allergies Allergy/AdvReac Type Severity Reaction Status Date / Time No Known Allergies Allergy Verified 05/30/24 10:39 Exam (Inpt) Vital signs and Labs for Last 24 Hours: Temp Pulse Resp BP Pulse Ox O2 Del Method 98.1 F 67 17 115/49 L 95 Room Air 05/31/24 04:00 05/31/24 04:00 05/31/24 04:00 05/31/24 04:00 05/31/24 04:00 05/31/24 04:00 Laboratory Results - last 24 hr 05/30/24 10:43: POC Glucose 91 05/30/24 16:25: POC Glucose 126 H 05/30/24 20:10: POC Glucose 174 H 05/31/24 06:08: POC Glucose 131 H I & O for Labs for Last 24 Hours: Intake & Output 05/28/24 05/29/24 05/30/24 05/31/24 23:59 23:59 23:59 23:59 Intake Total 600 / 600 Output Total 200 / 200 0 / 0 Balance 400 / 400 0 / 0 Weight 172 lb 2 oz 158 lb 3.2 oz Constitutional: Present no acute distress and cooperative Head: Present normocephalic Eye: Present as per HPI Neck: Present normal inspection Respiratory: Present normal respiratory effort and able to speak in complete sentences Cardiac: Present pedal pulses present (weakly palpable) GI: Present soft Rectal (female): Present deferred (female): Present deferred Extremities: Present tenderness (R 2nd toe) Skin: Present wounds Comment:: S/p right 2nd toe amp with sutures clean dry and intact. Neuro: Present Weakness and moves all extremities Ankle: bilateral: swelling Feet/Toes: right: amputation (s/p R 2nd toe amp) and right: wound (hx R 2nd toe DFU) and bilateral: bunion, bilateral: deformity, bilateral: hammer toe, bilateral: nail abnormalities and bilateral: onychomycosis Inspection: Present foot deformity deformity: Present bunion, hallux valgus, hammer toes and deformed toes and calluses/corns (R sub 1st met) Pulses: L dorsalis pedis pulse: diminished, R dorsalis pedis pulse: diminished, L posterior tibial pulse: diminished and R posterior tibial pulse: diminished CFT: dim: CFT Results Labs 05/31/24 05:52 05/31/24 05:52 Labs: Abnormal lab results 05/30/24 05/30/24 05/31/24 Range/Units 16:25 20:10 06:08 POC Glucose 126 H 174 H 131 H (70-110) All other labs normal. Assessment and Plan *Assessment and plan (1) Osteomyelitis of second toe of right foot: Status: Acute Category: Medical Code(s): M86.9 - Osteomyelitis, unspecified (2) MRSA (methicillin resistant staph aureus) culture positive: Status: Acute Category: Medical Code(s): Z22.322 - Carrier or suspected carrier of Methicillin resistant Staphylococcus aureus (3) Crossover toe deformity of right foot: Status: Acute Category: Medical Code(s): M20.5X1 - Other deformities of toe(s) (acquired), right foot (4) Status post amputation of toe of right foot: Status: Acute Category: Surgical Code(s): Z89.421 - Acquired absence of other right toe(s) (5) Chronic kidney disease, stage 3: Status: Acute Qualifiers: Chronic kidney disease stage 3 subtype: unspecified whether 3a or 3b Qualified Code(s): N18.30 - Chronic kidney disease, stage 3 unspecified Category: Medical Code(s): N18.30 - Chronic kidney disease, stage 3 unspecified (6) Type 2 diabetes mellitus: Status: Acute Qualifiers: Diabetes mellitus intermediate card tender insulin use: without intermediate card tender use Diabetes mellitus complication status: with kidney complications Diabetes mellitus complication detail: with chronic kidney disease Chronic kidney disease stage: stage 3 (moderate) Chronic kidney disease stage 3 subtype: unspecified whether 3a or 3b Qualified Code(s): E11.22 - Type 2 diabetes mellitus with diabetic chronic kidney disease; N18.30 - Chronic kidney disease, stage 3 unspecified Category: Medical Code(s): E11.9 - Type 2 diabetes mellitus without complications Plan 05/31/24 Post Op day #1 Date of procedure: 05/30/24 Right 2nd toe amputation Right sub 1st met callus debridement Discharge/Plan: -Patient is to maintain dressing clean dry and intact. -Continue antibiotics: IV Linzeolid while admitted. -Plan for d/c with oral Linzeolid 600mg po x10d ([facility] meds to bed: abx, [place] x10 pills). -Weight bearing to the right heel in short fracture boot with DME assistance (walker, wheelchair). -Dressing change: Site cleaned with betadine and then Xeroform, betadine soaked 4x4 and then Kerlix and andres wrap. There was small amount of drainage on the dressing, so she can change dressings every other day. -Patient to follow up 1 week in office post Op -Patient is good to be discharged from Podiatry standpoint at the hospitalist discretion. Specimens:: Pending Right 2nd toe bone culture Path: right 2nd toe, right 2nd toe bone
[2024-05-31 06:53] LABS: Chloride 108 mmol/L (98-107); Potassium 3.5 mmoL/L (3.5-5.1); Sodium 140 mmol/L (136-145)
[2024-05-31 06:55] LABS: Alanine Aminotransferase 18 U/L (12-78); Aspartate Amino Transferase 29 U/L (14-36); Blood Urea Nitrogen 24 mg/dl (7-17); Creatinine Clearance Estimated 38 mL/min (50-200); Estimated Glomerular Filt Rate 36 ml/min (>60); GFR (African American) 44 ML/MIN (>60)
[2024-05-31 06:56] LABS: Albumin Level 2.9 g/dl (3.5-5.0); Alkaline Phosphatase 112 U/L (38-126); Anion Gap 7.5 mEq/L (5-15); Bilirubin,Total 0.2 mg/dl (0.2-1.3); Calcium 8.4 mg/dl (8.4-10.2); Carbon Dioxide 28 mmol/L (22.0-30.0); Glucose 143 mg/dl (74-100); Total Protein,Serum 5.9 g/dl (6.3-8.2)
--- NOTE | 2024-05-31 07:37 | P.DS_ITS ---
General Admission date:: 05/30/24 Discharge date: 05/31/24 HPI HPI HPI: Ms. Marrufo is a 79-year-old female with a history of diabetes with multiple fractures in her right middle toe per family's report. She presented because of recurring infections after the toes curled over each other and she has had persistent problems. Right second toe was removed electively today by podiatry. Of note, she recently had an admission at [facility] in [place] for A- fib. Due to this, her furniture manager recommended to podiatry the patient be admitted and monitored overnight in the postop setting for any tachyarrhythmias. Previous history of osteomyelitis in the second hammertoe contracture with open wound. Osteomyelitis confirmed with x-rays and MRI. Procedure performed today, successful well-tolerated amputation of toe. Patient seen after arriving to the floor. She is alert at baseline to self. Does not know where she is or why. Has baseline dementia per family. Is pleasant on exam with no complaints of pain. Stable on room air and afebrile. Medicine consulted to assist with comanagement of patient. 05/31/24: Patient was resting in bed, awake and oriented this morning. She slept well with little to no pain in her Right 2nd toe amputation site. Hospital Course Hospital Course Hospital Course: 79-year-old female with hammertoe and osteomyelitis of the second toe on right foot. Status post amputation by podiatry today. Tolerated procedure well. Admitted for observation overnight. Discussed case with podiatry, request admission for monitoring due to risk of A-fib and recent hospitalization for A- fib. I agreed to admit for further management and observation. Monitoring on telemetry overnight. Problems addressed as follows: Osteomyelitis Status post amputation of second toe on right foot. - Previous culture sensitive to linezolid, continue 600 mg IV twice daily; source control achieved with amputation. Tolerated procedure well. White cell count 9.2 on morning of discharge. Will continue antibiotics to complete 10 days of therapy with linezolid. Hydrocodone for pain control. Podiatry consulted and assisted with care during admission. Daughter will continue to do dressing changes at home: every other day, betadine soaked gauze to sutures, dry gauze, secure with cesar then tape or andres. Therapy evaluated, will initiate home health PT and OT. Weightbearing as tolerated on right heel in fracture boot with walker or wheelchair. Plan to follow-up with podiatry in 1 to 2 weeks. A-fib: Continue metoprolol succinate 100 mg daily, currently in sinus rhythm. Not on any anticoagulation at home. CKD 3: creatinine 1.7, BUN 32 1 month ago. Repeat CMP morning of discharge with BUN 24, creatinine 1.4. Appears to be her baseline. Diabetes: A1c 5.5 1 month ago, Does not appear to be on any home medications. Fingerstick glucose and insulin sliding scale low intensity while admitted. No insulin needed during admission. No medications at discharge. Hypothyroid: Continue levothyroxine 50 mcg daily, TSH pending for the morning Hypertension: Continue home amlodipine 5 mg daily, lisinopril 10/HCTZ 12.5 daily Hyperlipidemia: Continue home Lipitor 40 mg daily; Continue home aspirin 81mg daily Gout: Continue allopurinol 100 mg daily Mood disorder: Continue Abilify 10 mg daily; will hold venlafaxine and BuSpar due to risk serotonin syndrome home in the setting of linezolid use. Resume after completing antibiotics Memory impairment: Continue memantine 10 mg twice daily. Exam Data for Last 24 hours Vital signs and Labs for Last 24 Hours: Temp Pulse Resp BP Pulse Ox O2 Del Method 98.1 F 67 17 115/49 L 95 Room Air 05/31/24 04:00 05/31/24 04:00 05/31/24 04:00 05/31/24 04:00 05/31/24 04:00 05/31/24 07:00 Laboratory Results - last 24 hr 05/30/24 10:43: POC Glucose 91 05/30/24 16:25: POC Glucose 126 H 05/30/24 20:10: POC Glucose 174 H 05/31/24 05:52: WBC 9.2, RBC 3.67 L, Hgb 11.1 L, Hct 34.4 L, MCV 93.8, MCH 30.3, MCHC 32.3, RDW 14.2, Plt Count 226, MPV 8.3, Neut % (Auto) 72.8, Lymph % (Auto) 18.3, Moca % (Auto) 4.8, Eos % (Auto) 3.8, Baso % (Auto) 0.3, Neut # (Auto) 6.7, Lymph # (Auto) 1.7, Moca # (Auto) 0.4, Eos # (Auto) 0.4, Baso # (Auto) 0.0, Sodium 140, Potassium 3.5, Chloride 108 H, Carbon Dioxide 28, Anion Gap 7.5, BUN 24 H, Creatinine 1.40 H, Estimated Creat Clear 38, Estimated GFR 36 L, Est GFR ( Amer) 44 L, Glucose 143 H, Calcium 8.4, Total Bilirubin 0.2, AST 29, ALT 18, Alkaline Phosphatase 112, Total Protein 5.9 L, Albumin 2.9 L, Globulin 3.0, Albumin/Globulin Ratio 1.0 L 05/31/24 06:08: POC Glucose 131 H I & O for Last 24 hours: Intake & Output 05/28/24 05/29/24 05/30/24 05/31/24 23:59 23:59 23:59 23:59 Intake Total 600 / 600 Output Total 200 / 200 0 / 0 Balance 400 / 400 0 / 0 Weight 78.075 kg 71.758 kg Constitutional Constitutional: no acute distress, obese and chronically ill appearing *Routine HEENT Exam Head: Present normocephalic Eye: Present EOMI and PERRL ENT: Present mucous membranes moist *Routine Neck Exam Neck: Present supple; Absent lymphadenopathy *Routine Respiratory Exam Respiratory: Present CTA bilaterally; Absent rhonchi, wheezes or crackles *Routine Cardiovascular Exam Cardiovascular: Present RRR *Routine Abdominal Exam Abdominal: Present soft and normoactive bowel sounds; Absent tenderness *Routine Rectal Exam Patient deferred: visual exam *Routine Exam Patient deferred: external exam *Routine Extremities Exam Extremities: Absent cyanosis, clubbing or edema Comments: Second digit on right toe absent. Postsurgical bandage in place. *Routine Skin Exam Skin: Present intact and warm; Absent rash *Routine Neurological Exam Neurological: Present alert and moving all extremities Comments: Baseline mentation Results Data Completed and Pending Labs on day of discharge: Labs from last 24 hours 05/31/24 05/31/24 05/30/24 06:08 05:52 20:10 WBC 9.2 RBC 3.67 L Hgb 11.1 L Hct 34.4 L MCV 93.8 MCH 30.3 MCHC 32.3 RDW 14.2 Plt Count 226 MPV 8.3 Neut % (Auto) 72.8 Lymph % (Auto) 18.3 Moca % (Auto) 4.8 Eos % (Auto) 3.8 Baso % (Auto) 0.3 Neut # (Auto) 6.7 Lymph # (Auto) 1.7 Moca # (Auto) 0.4 Eos # (Auto) 0.4 Baso # (Auto) 0.0 Sodium 140 Potassium 3.5 Chloride 108 H Carbon Dioxide 28 Anion Gap 7.5 BUN 24 H Creatinine 1.40 H Estimated Creat Clear 38 Estimated GFR 36 L Est GFR ( Amer) 44 L Glucose 143 H POC Glucose 131 H 174 H Calcium 8.4 Total Bilirubin 0.2 AST 29 ALT 18 Alkaline Phosphatase 112 Total Protein 5.9 L Albumin 2.9 L Globulin 3.0 Albumin/Globulin Ratio 1.0 L 05/30/24 05/30/24 16:25 10:43 WBC RBC Hgb Hct MCV MCH MCHC RDW Plt Count MPV Neut % (Auto) Lymph % (Auto) Moca % (Auto) Eos % (Auto) Baso % (Auto) Neut # (Auto) Lymph # (Auto) Moca # (Auto) Eos # (Auto) Baso # (Auto) Sodium Potassium Chloride Carbon Dioxide Anion Gap BUN Creatinine Estimated Creat Clear Estimated GFR Est GFR ( Amer) Glucose POC Glucose 126 H 91 Calcium Total Bilirubin AST ALT Alkaline Phosphatase Total Protein Albumin Globulin Albumin/Globulin Ratio DS: Diagnosis Discharge Diagnosis (1) Osteomyelitis of second toe of right foot: Status: Acute Code(s): M86.9 - Osteomyelitis, unspecified (2) MRSA (methicillin resistant staph aureus) culture positive: Status: Acute Code(s): Z22.322 - Carrier or suspected carrier of Methicillin resistant Staphylococcus aureus (3) Crossover toe deformity of right foot: Status: Acute Code(s): M20.5X1 - Other deformities of toe(s) (acquired), right foot (4) Status post amputation of toe of right foot: Status: Acute Code(s): Z89.421 - Acquired absence of other right toe(s) (5) Chronic kidney disease, stage 3: Status: Acute Code(s): N18.30 - Chronic kidney disease, stage 3 unspecified Qualifiers: Chronic kidney disease stage 3 subtype: unspecified whether 3a or 3b Qualified Code(s): N18.30 - Chronic kidney disease, stage 3 unspecified (6) Type 2 diabetes mellitus: Status: Acute Code(s): E11.9 - Type 2 diabetes mellitus without complications Qualifiers: Chronic kidney disease stage: stage 3 (moderate) Chronic kidney disease stage 3 subtype: unspecified whether 3a or 3b Diabetes mellitus complication detail: with chronic kidney disease Diabetes mellitus complication status: with kidney complications Diabetes mellitus [facility] insulin use: without terminal operator use Qualified Code(s): E11.22 - Type 2 diabetes mellitus with diabetic chronic kidney disease; N18.30 - Chronic kidney disease, stage 3 unspecified Meds Home Medications and Allergies Home Medications Medication Instructions Recorded Confirmed Type allopurinol 100 mg tablet 100 mg PO DAILY 03/08/24 05/30/24 History amlodipine 5 mg tablet (Norvasc) 5 mg PO DAILY 03/08/24 05/30/24 History aripiprazole 10 mg tablet (Abilify) 10 mg PO HS 03/08/24 05/30/24 History buspirone 15 mg tablet 15 mg PO BID 03/08/24 05/30/24 History ergocalciferol (vitamin D2) 1,250 1,250 mcg PO MONTHLY 03/08/24 05/30/24 History mcg (50,000 unit) capsule (Vitamin D2) famotidine 20 mg tablet (Pepcid) 20 mg PO BID 03/08/24 05/30/24 History folic acid 1 mg tablet 1 mg PO DAILY 03/08/24 05/30/24 History furosemide 40 mg tablet (Lasix) 40 mg PO DAILYP PRN Edema 03/08/24 05/30/24 History levothyroxine 50 mcg tablet 50 mcg PO DAILY 03/08/24 05/30/24 History lisinopril 10 1 tab PO DAILY 03/08/24 05/30/24 History mg-hydrochlorothiazide 12.5 mg tablet (Zestoretic) loratadine 10 mg tablet 10 mg PO DAILY 03/08/24 05/30/24 History memantine 10 mg tablet 10 mg PO BID 03/08/24 05/30/24 History metoprolol succinate 100 mg 100 mg PO DAILY 03/08/24 05/30/24 History tablet,extended release 24 hr (Toprol XL) pantoprazole 40 mg tablet,delayed 40 mg PO BID 03/08/24 05/30/24 History release potassium chloride 20 mEq 10 meq PO BID 03/08/24 05/30/24 History tablet,extended release(part/cryst) tramadol 50 mg tablet 25 mg PO BIDP PRN Mild Pain (Scale 03/08/24 05/30/24 History Score 1-4) venlafaxine 75 mg capsule,extended 75 mg PO DAILY 03/08/24 05/30/24 History release 24 hr (Effexor XR) aspirin 81 mg tablet,delayed 81 mg PO DAILY 05/30/24 05/30/24 History release atorvastatin 40 mg tablet 40 mg PO DAILY 05/30/24 05/30/24 History hydrocodone 5 mg-acetaminophen 325 1 tab PO Q8H PRN pain 4 days #10 05/30/24 Rx mg tablet tabs linezolid 600 mg tablet (Zyvox) 600 mg PO BID infection 10 days 05/30/24 Rx #20 tabs New Prescriptions to Start Prescriptions: Allergies Allergy/AdvReac Type Severity Reaction Status Date / Time No Known Allergies Allergy Verified 05/30/24 10:39 Discharge Plan Disposition Patient Disposition: Home Health Service Condition: Fair Discharge Order Discharge Orders: Discharge Order (Routine); Ordered 05/31/24 Ordered By: Willie Sabillon Follow up Plan Follow up with: Selene Rankin [Primary Care Provider] - Enter time for follow up (Please call for your follow up appt. ) Liv Monroe DPM [Staff Physician] - 06/06/24 2:45 pm Prescriptions/Medication Reconciliation: Continued aripiprazole [Abilify] 10 mg tablet 10 mg PO HS Patient Comments: Take 1 tablet every day by oral route in the evening. furosemide [Lasix] 40 mg tablet 40 mg PO DAILYP PRN (Reason: Edema) Patient Comments: TAKE 1 TABLET ONCE A DAY IN AM NEEDED memantine 10 mg tablet 10 mg PO BID Patient Comments: TAKE ONE TABLET BY MOUTH TWICE DAILY loratadine 10 mg tablet 10 mg PO DAILY Patient Comments: TAKE ONE TABLET EVERY DAY NEEDED lisinopril-hydrochlorothiazide [Zestoretic] 10-12.5 mg tablet 1 tab PO DAILY Patient Comments: TAKE 1 TABLET DAILY. folic acid 1 mg tablet 1 mg PO DAILY Patient Comments: TAKE ONE TABLET BY MOUTH ONCE DAILY pantoprazole 40 mg tablet,delayed release (DR/EC) 40 mg PO BID Patient Comments: TAKE ONE TABLET BY MOUTH TWICE DAILY levothyroxine 50 mcg tablet 50 mcg PO DAILY Patient Comments: Take 1 tablet(s) every day famotidine [Pepcid] 20 mg tablet 20 mg PO BID Patient Comments: TAKE ONE TABLET BY MOUTH TWICE DAILY potassium chloride 20 mEq tablet,ER particles/crystals 10 meq PO BID Patient Comments: take ONE-HALF TABLET TWICE DAILY allopurinol 100 mg tablet 100 mg PO DAILY Patient Comments: TAKE ONE TABLET EVERY DAY amlodipine [Norvasc] 5 mg tablet 5 mg PO DAILY Patient Comments: TAKE ONE TABLET EVERY DAY metoprolol succinate [Toprol XL] 100 mg tablet extended release 24 hr 100 mg PO DAILY Patient Comments: TAKE (1) TABLET DAILY FOR HIGH BLOOD PRESSURE. ergocalciferol (vitamin D2) [Vitamin D2] 1,250 mcg (50,000 unit) capsule 1,250 mcg PO MONTHLY hydrocodone-acetaminophen 5-325 mg tablet 1 tab PO Q8H PRN (Reason: pain) 4 Days Qty: 10 0RF linezolid [Zyvox] 600 mg tablet 600 mg PO BID 10 Days Qty: 20 0RF atorvastatin 40 mg Tablet 40 mg PO DAILY aspirin 81 mg Tablet,Delayed Release (Dr/Ec) 81 mg PO DAILY Held buspirone 15 mg tablet 15 mg PO BID Hold Instructions: Pending completion of linezolid. Resume 24 hours after completing antibiotics Patient Comments: Take 1 tablet(s) twice a day tramadol 50 mg tablet 25 mg PO BIDP PRN (Reason: Mild Pain (Scale Score 1-4)) Hold Instructions: Pending completion of linezolid. Resume 24 hours after completing antibiotics Patient Comments: TAKE ONE-HALF TABLET by mouth TWICE DAILY NEEDED FOR PAIN venlafaxine [Effexor XR] 75 mg capsule,extended release 24hr 75 mg PO DAILY Hold Instructions: Pending completion of linezolid. Resume 24 hours after completing antibiotics Patient Comments: Take 1 capsule by mouth every day in the evening. Problem Reconciliation Problems Reviewed?: Yes Patient Discharge Instructions ACTIVITY: Continue current activity DIET: continue same diet Patient Instructions: How to Care for a Surgical Wound, DI for Toe Amputation, DI for Surgical Site Infection Providers Primary Care Provider: Selene Rankin Admit Provider: Willie Sabillon Attending Provider: Willie Sabillon
[2024-05-31] MEDS: FAMOTIDINE 20MG TABLET 20 MG PO (07:54)
[2024-05-31] MEDS: AMLODIPINE 5MG TABLET 5 MG PO (07:54)
[2024-05-31] MEDS: POTASSIUM CHLORIDE 10MEQ TABLET.ER 10 MEQ PO (07:54)
[2024-05-31] MEDS: METOPROLOL SUCCINATE XL 100MG TABLET 100 MG PO (07:54)
[2024-05-31] MEDS: PANTOPRAZOLE 40MG TABLET 40 MG PO (07:54)
[2024-05-31] MEDS: ALLOPURINOL 100MG TABLET 100 MG PO (07:54)
[2024-05-31] MEDS: LISINOPRIL/HCTZ 10-12.5MG TABLET 1 EACH PO (07:54)
[2024-05-31] MEDS: FOLIC ACID 1MG TABLET 1 MG PO (07:54)
[2024-05-31] MEDS: MEMANTINE 10MG TABLET 10 MG PO (07:54)
[2024-05-31] MEDS: ATORVASTATIN 40MG TABLET 40 MG PO (07:55)
[2024-05-31] MEDS: ASPIRIN EC 81MG TABLET 81 MG PO (07:55)
[2024-05-31 08:00] VITALS: BP 107/66; PULSE 65; PULSE 80; RESP 18; TEMP 36.9; O2SAT 96
--- NOTE | 2024-05-31 08:01 | HMH.PTEV ---
Physical Therapy Evaluation Rehab PT IP Evaluation Start: 05/30/24 11:50 Freq: ONCE Status: Active Protocol: Document 05/31/24 07:55 RIOS (Rec: 05/31/24 08:00 RIOS [id number]) Subjective/History History History Per H&P: Ms. Marrufo is a 79-year-old female with a history of diabetes with multiple fractures in her right middle toe per family's report. She presented because of recurring infections after the toes curled over each other and she has had persistent problems. Right second toe was removed electively today by podiatry. Of note, she recently had an admission at [facility] in [place] for A-fib. Due to this, her creative assistant recommended to podiatry the patient be admitted and monitored overnight in the postop setting for any tachyarrhythmias. Previous history of osteomyelitis in the second hammertoe contracture with open wound. Osteomyelitis confirmed with x -rays and MRI. Procedure performed today, successful well-tolerated amputation of toe. Patient seen after arriving to the floor. She is alert at baseline to self. Does not know where she is or why. Has baseline dementia per family. Is pleasant on exam with no complaints of pain. Subjective Subjective PLOF per pt and pt's daughter' s report: Lives with daughter in single stroy home. Needed some assistance with ADLs and mobility. Used a RW. Was not driving prior to admission. Had a fall a few days before admission. New diagnosis of cancer in past 12 No months? Rehab PT IP Eval Objective Appearance Patient Behavior Appropriate,Cooperative Patient Orientation Person,Situation Difficulty following instructions none Speech Pattern Clear Ambulation Patient Able to Ambulate No Balance Ability to Arise Able, uses arms to help Sitting Balance Steady, safe Standing Balance Unsteady Transfers Bed Transfer Ability Moderate x 1 (50% assist) Sit to Stand Bed Transfer Ability Minimal x 1 (25% assist) Rehab PT IP prob,goals,plan Problems Date of Evaluation: 05/31/24 PT IP Problems Bed Mobility,Transfers,Gait, Balance,Self care,Safety Rehab Potential Rehab Potential Good Equipment Needs Assistive Devices Rolling / Wheeled Walker Plan PT Intervention Plan Bed Mobility,Transfers,Gait, Balance,Safety,Therapeutic Exercise Other Intervention Plan 1-2 times PT Plan Frequency Daily Duration LOS Discharge Goals Bed Transfer Ability Minimal x 1 (25% assist) Sit to Stand Chair Transfer Ability Contact Guard/Hand Hold Ambulation Assistive Device Rolling Walker Ambulation Distance (feet) 5 Discharge Plan PT Discharge Plan Initial physical therapy evaluation performed. Patient presents below baseline at this time in functional mobility, transfers, gait, and strength. Upon discharge from [facility], once medically stable per MD, pt. most appropriate to be discharged to a rehabilitation d/t current level to promote and improve overall generalized conditioning, endurance, and strength to further improve on current status w/ ADLs and caregivers at home. Pt may be safe to d/c home with assistance by family and HH PT services if pt demo's improved mobility while at [facility] . Pt would benefit from skilled acute care PT to prevent further functional decline and maximize safety with mobility. Eval Complexity Eval Charge Codes 05668 - Moderate Complexity PHYSICIAN CERTIFICATION: I certify the specified therapy services for Keyona Marrufo are required, authorized, and reviewed every 30 days.
[2024-05-31 09:04] LABS: Thyroid Stimulating Hormone 3.06 uIU/mL (0.465-4.68)
--- NOTE | 2024-05-31 09:31 | SW/DCPLANNER ---
Addendum entered by Sunni Cornejo 05/31/24 12:32: Odilia etienne/ [facility] stated that services will begin this week. Original Note: CM spoke w/ patient and daughter regarding discharge plans. PT/OT evaluated patient and recommended SNF level of care. Patient/family refused placement at this time and prefer to discharge home w/ home health services. Family did not have a preference as to which home health agency. The plan is for this patient to discharge home today. Patient information/order will be faxed to [facility].
[2024-05-31 10:16] LABS: POC Glucose,Bedside 138 (70-110)
[2024-05-31 12:00] VITALS: BP 105/53; PULSE 65; PULSE 68; RESP 16; TEMP 36.9; O2SAT 95
--- NOTE | 2024-06-01 13:15 | CARE MANAGER ---
Contacted patient's daughter related to hospital discharge. She states the patient is doing well. They are aware of her follow up appointment and medication changes. They have also spoken with home health. Denies questions or concerns at this time. CALVIN Murdock
== END 2024-05-31 13:17 | disposition home health service (06) ==
LOC: 2ND 11:33
PROVIDERS: Podiatrist; Admitting Provider Internal Medicine Adolescent Medicine; PCP Family Medicine; Visit Provider Internal Medicine Adolescent Medicine
PROC: (CPT 28820; principal; 2024-05-30 11:30)
DX: E11.621 Type 2 diabetes mellitus with foot ulcer (principal); E11.69 Type 2 diabetes mellitus with other specified complication; L97.516 Non-pressure chronic ulcer of other part of right foot with bone involvement without evidence of necrosis; M20.11 Hallux valgus (acquired), right foot; M21.611 Bunion of right foot; L84 Corns and callosities; M86.8X8 Other osteomyelitis, other site; Z22.322 Carrier or suspected carrier of Methicillin resistant Staphylococcus aureus; N18.30 Chronic kidney disease, stage 3 unspecified; M20.41 Other hammer toe(s) (acquired), right foot; E11.22 Type 2 diabetes mellitus with diabetic chronic kidney disease; M15.9 Polyosteoarthritis, unspecified; R41.3 Other amnesia; F41.8 Other specified anxiety disorders; G60.9 Hereditary and idiopathic neuropathy, unspecified; I48.91 Unspecified atrial fibrillation; Z79.899 Other long term (current) drug therapy; E55.9 Vitamin D deficiency, unspecified; Z87.891 Personal history of nicotine dependence
CPT/HCPCS: 28820; 36415; 71045; 73630; 80050; 80053; 82962; 84443; 85025; 88304; 93005; 96374; 97162; C9144; G0378; J1580; J2020; J2270; J3010; J3370; J7030